=== PATIENT | male | born 1980 | race Caucasian/White ===

== ENCOUNTER 2019-10-15 13:34 | Observation (INO) ==
--- NOTE | 2019-10-15 15:44 | Emergency Department Note ---
History of Present Illness General Chief complaint: Dental/Oral Stated complaint: TOOTH PAIN Time Seen by Provider: 10/15/19 15:11 History of Present Illness Maximum Pain Intensity: 7 This is a 38 year old male who presents to the ED via private vehicle with complaints of "tooth pain". The patient states that he has been experiencing left upper dental pain x5 days. He was prescribed amoxicillin this past at [facility] emergency department and states that he has had worsening pain since that time and now swelling that has markedly progressed since last night. He denies any fevers but does note chills. He denies any pertinent past medical history, surgeries or allergies. No trouble breathing or swallowing. He points to the left anterior portion of the face that extends just below the left eye and to the mouth as a location of pain that he currently rates as a 7/10. Home Medications Home Medications Medication Instructions Recorded Confirmed Type acetaminophen [Tylenol Extra 1,000 mg PO Q6H PRN 10/15/19 10/15/19 History Strength] amoxicillin 500 mg PO TID 10/15/19 10/15/19 History ibuprofen 400 mg PO Q4H PRN 10/15/19 10/15/19 History Allergies Allergy/AdvReac Type Severity Reaction Status Date / Time No Known Allergies Allergy Verified 10/15/19 15:46 Past Med/Surg History Medical History No pertinent past medical history Surgical History No pertinent past surgical history Social History Smoking Status: Current every day smoker Tobacco Type: Cigarettes Feels Safe at Home: Yes Review of Systems A total of 10 systems reviewed and were otherwise negative Physical Exam Vital Signs Vital Signs - 24 hr 10/15/19 13:40 10/15/19 15:40 10/15/19 17:39 Temperature 37.2 C Temperature Source Oral Pulse Rate 88 Pulse Rate [Radial] 95 H 72 Pulse Rhythm [Radial] Regular Regular Pulse Strength [Radial] Normal Respiratory Rate 18 18 16 Respiratory Effort / Characteristics Non-Labored Spontaneous Non-Labored Spontaneous Respiratory Depth Normal Normal Respiratory Pattern Regular Regular Blood Pressure 146/93 H Blood Pressure [Right Arm] 136/88 142/98 H Blood Pressure Mean 110 Blood Pressure Mean [Right Arm] 104 112 Pulse Oximetry 99 98 99 Oxygen Delivery Method Room Air Room Air Room Air Sepsis Recent Fever Within 48 Hours No Sepsis New/Unexplained Change in Mental Status No Sepsis Action Taken by Nursing No Action Required 10/15/19 18:55 Temperature Temperature Source Pulse Rate Pulse Rate [Radial] 70 Pulse Rhythm [Radial] Regular Pulse Strength [Radial] Normal Respiratory Rate 18 Respiratory Effort / Characteristics Non-Labored Spontaneous Respiratory Depth Normal Respiratory Pattern Regular Blood Pressure Blood Pressure [Right Arm] 147/88 H Blood Pressure Mean Blood Pressure Mean [Right Arm] 107 Pulse Oximetry 99 Oxygen Delivery Method Room Air Sepsis Recent Fever Within 48 Hours Sepsis New/Unexplained Change in Mental Status Sepsis Action Taken by Nursing VITAL SIGNS - Vital signs and nursing notes were reviewed. Stable and afebrile. GENERAL - 38-year-old male appearing his stated age who is in no acute distress. Communicates well with provider and answers questions appropriately. SKIN - Without rashes. There is edema to the left side of the face without erythema. This is overlying the left maxillary region just inferior to the left eye. HEAD - NC/AT. EYES - PERRL with EOMI bilaterally. Sclera anicteric. EARS - No deformities of external structures noted on gross examination bilaterally. External auditory canals without discharge or otorrhea. Tympanic membranes pearly montano without retraction or bulging. No fluid or purulent material visualized behind the TM. Handle of malleus, umbo, cone of light, pars tensa/flaccid all easily visualized. NOSE - Midline and without cyanosis. No epistaxis or purulent drainage noted. Septum midline without deviation or septal hematoma noted. MOUTH/OROPHARYNX - Without perioral cyanosis. Buccal mucosa pink and moist and without leukoplakia. Tongue midline with equal elevation of palate bilaterally. No tonsillar hypertrophy, erythema, or exudates noted. Overall poor dentition n oted. Left anterior facial edema and edema to the left hard pallate. NECK - Neck with FROM. Supple to palpation. No nuchal rigidity. LUNGS - Chest wall symmetric without accessory muscle use, intercostals retractions, or central cyanosis. Normal vesicular breath sounds CTA B/L. No wheezes, rales, or rhonchi appreciated. CARDIAC - RRR with S1/S2. No murmur, rubs, or gallops appreciated. EXTREMITIES - No clubbing or peripheral cyanosis. +5/5 strength noted in UE/LE bilaterally. NEUROLOGIC - Cranial nerves II through XII grossly intact. PSYCH - A&O, and cooperates fully with examiner. Pt is very pleasant and interacts well with examiner. Course Administered Medications Ioversol (Optiray 320 100ml) 93 ml IV ONCE PRN PRN Reason: Interaction Checking Stop: 10/19/19 16:22 Last Admin: 10/15/19 16:23 Dose: 1 ml Documented by: [id number] Discontinued Medications Ampicillin Sodium/Sulbactam Sodium 3,000 mg/ Sodium Chloride 108 mls @ 200 mls/hr IV NOW STA; Protocol Stop: 10/15/19 18:14 Last Infusion: 10/15/19 19:25 Dose: 0 mls/hr Documented by: [id number] Admin: 10/15/19 18:53 Dose: 200 mls/hr Documented by: [id number] Ketorolac Tromethamine (Toradol) 15 mg IV NOW STA Stop: 10/15/19 17:51 Last Admin: 10/15/19 18:53 Dose: 15 mg Documented by: [id number] Medical Decision Making Laboratory Data Result diagrams: 10/15/19 15:40 10/15/19 15:40 Lab Results 10/15/19 10/15/19 Range/Units 15:40 15:40 WBC 15.47 H (4.8-10.8) K/uL RBC 4.99 (4.7-6.1) M/uL Hgb 14.9 (14.0-18.0) g/dL Hct 43.6 (42-52) % MCV 87.4 (80-100) fL MCH 29.9 (25-34) pg MCHC 34.2 (32-36) g/dL RDW Std Deviation 43.2 (36.4-46.3) fL RDW Coeff of Perfecto 13.4 (11.5-14.5) % Plt Count 232 (130-400) K/uL MPV 11.1 H (7.4-10.4) fL Immature Gran % (Auto) 0.3 % Neut % (Auto) 81.8 % Lymph % (Auto) 8.5 % [place] % (Auto) 8.7 % Eos % (Auto) 0.6 % Baso % (Auto) 0.1 % Neut # (Auto) 12.66 H (1.4-6.5) K/uL Lymph # (Auto) 1.32 (1.2-3.4) K/uL [place] # (Auto) 1.34 H (0.11-0.59) K/uL Eos # (Auto) 0.09 (0-0.5) K/uL Baso # (Auto) 0.02 (0-0.2) K/uL Immature Gran # (Auto) 0.04 H (0.00-0.02) K/uL Sodium 138 (136-145) mmol/L Potassium 3.8 (3.5-5.1) mmol/L Chloride 105 (98-107) mmol/L Carbon Dioxide 28 (21-32) mmol/L Anion Gap 5.0 (3-11) BUN 3 L (7-18) mg/dl Creatinine 0.93 (0.6-1.4) mg/dl Est Cr Clr Drug Dosing 105.6 ml/min Est GFR ( Amer) 120.3 Est GFR (Non-Af Amer) 103.8 BUN/Creatinine Ratio 2.8 L (10-20) Glucose 87 (70-99) mg/dl Calcium 9.4 (8.5-10.1) mg/dl Total Bilirubin 0.7 (0.2-1) mg/dl AST 9 L (15-37) U/L ALT 16 (12-78) U/L Alkaline Phosphatase 106 (45-117) U/L Total Protein 8.3 H (6.4-8.2) gm/dl Albumin 4.2 (3.4-5.0) gm/dl Globulin 4.1 H (2.5-4.0) gm/dl Albumin/Globulin Ratio 1.0 (0.9-2) Imaging Data Radiologist's Impression: CT facial bones w con CT DOSE: 706.62 mGy.cm CLINICAL HISTORY: Left-sided facial edema, poor dentition TECHNIQUE: The patient was scanned in a dynamic helical fashion during intravenous administration of 94 cc of Optiray 320. A dose lowering technique was utilized adhering to the principles of ALARA. COMPARISON STUDY: None. FINDINGS: No salivary gland masses are visualized. There are mildly prominent bilateral cervical lymph nodes left greater than right, likely reactive. No mucosal space masses are visualized. There is no evidence for airway compromise. There is left maxillary sinus mucosal thickening. There is left-sided perinasal and premaxillary soft tissue edema. There are multiple bilateral dental caries. There are bony destructive changes surrounding the left maxillary canine. There is adjacent soft tissue abscess both medially and laterally to the maxilla measuring 2 cm in greatest diameter. IMPRESSION: 1. Poor dentition with multiple bilateral dental caries 2. Multiple bilateral dental apical abscesses 3. Dental apical abscess involving the left maxillary canine. There are associated bony destructive changes with adjacent soft tissue abscess extending both medially and laterally to the maxilla measuring 2 cm in diameter. Dental/political scientist referral recommended. 4. Prominent cervical lymph nodes, likely reactive ACT 112: Negative or not required by law. Electronically signed by: Rashel Meza M.D. 10/15/2019 4:51 PM MDM Narrative Patient was seen and evaluated as above in room B04. Review was performed of nursing notes and vital signs. After obtaining a thorough history and physical examination the above work up was performed. He presents to us today with atraumatic left facial swelling in the setting of poor dentition. There is obvious dental infection now with what appears to be spread into the face. Blood work was obtained. There is moderate leukocytosis around 15,000. No significant anemia. No emergent metabolic disturbance. Patient was given IV Toradol for pain. CT scan of the face was obtained with contrast. There is a dental apical abscess involving left maxillary canine. There are associated bony destructive changes with adjacent soft tissue abscess extending both medially and laterally to the maxilla measuring 2 cm in diameter. Clinically this is what I believe is causing the patient's discomfort. Given that the patient is already been on p.o. antibiotics and given the rapid progression did feel it reasonable to discuss the case with Dr. Miller, oral maxillofacial surgeon. We discussed inpatient management, IV antibiotics, n.p.o. after midnight and possible surgical procedure tomorrow. Patient was amenable to sta poly. Case discussed with the hospitalist. Please refer to further documentation regarding his stay. He was given IV Unasyn. GCS 15 In the evaluation and treatment of this patient, the following differential diagnoses were considered: Periapical Abscess, Osteonecrosis of the Jaw, Dental Fracture, Dental Caries, Michael's Angina, Vincent's Angina, Facial Cellulitis. Case was discussed with the attending physician. Impression & Plan Abscess, dental Discharge Plan Visit Data Chief Complaint: Dental/Oral Stated Complaint: TOOTH PAIN ED Provider: Julia Shultz ED Midlevel Provider: Edmundo Figueroa Discharge Problem: Abscess, dental Patient Disposition: Admitted As Inpatient Condition: Good Discharge Instructions Interventions: ED Discharge Assessment Last Done: 10/15/19 20:30 Forms Stand Alone Forms: [facility], [facility] Emergency Department, Important Visit Information Prescriptions Prescriptions: No Action amoxicillin 500 mg capsule 500 mg PO TID RF: 0 acetaminophen [Tylenol Extra Strength] 500 mg Tablet 1,000 mg PO Q6H PRN (Reason: Pain) RF: 0 ibuprofen 200 mg Tablet 400 mg PO Q4H PRN (Reason: Pain) RF: 0 Referrals Referrals: PCP,NO [Primary Care Provider] -
[2019-10-15 15:57] LABS: Basophils # (auto) 0.02 K/uL (0-0.2); Basophils % (auto) 0.1 %; Eosinophils # (auto) 0.09 K/uL (0-0.5); Eosinophils % (auto) 0.6 %; Hematocrit (blood only) 43.6 % (42-52); Hemoglobin 14.9 g/dL (14.0-18.0); Immature Granulocytes # (auto) 0.04 K/uL (0.00-0.02); Immature Granulocytes % (auto) 0.3 %; Lymphocytes # (auto) 1.32 K/uL (1.2-3.4); Lymphocytes % (auto) 8.5 %; Mean Corpuscular Hemoglobin 29.9 pg (25-34); Mean Corpuscular Hgb Conc 34.2 g/dL (32-36); Mean Corpuscular Volume 87.4 fL (80-100); Mean Platelet Volume 11.1 fL (7.4-10.4); Monocytes # (auto) 1.34 K/uL (0.11-0.59); Monocytes % (auto) 8.7 %; Neutrophils # (auto) 12.66 K/uL (1.4-6.5); Neutrophils % (auto) 81.8 %; Platelet Count 232 K/uL (130-400); RDW Coefficient of Variation 13.4 % (11.5-14.5); RDW Standard Deviation 43.2 fL (36.4-46.3); Red Blood Count 4.99 M/uL (4.7-6.1); White Blood Count 15.47 K/uL (4.8-10.8)
[2019-10-15 16:14] LABS: Albumin Level 4.2 gm/dl (3.4-5.0); BUN Creatinine Ratio 2.8 (10-20); Calcium 9.4 mg/dl (8.5-10.1); Creatinine Clr Calc Pharmacy 105.6 ml/min; Est GFR (African American) 120.3; Est GFR (Non-African American) 103.8; Potassium 3.8 mmol/L (3.5-5.1)
[2019-10-15 16:17] LABS: Bilirubin,Total 0.7 mg/dl (0.2-1); Globulin 4.1 gm/dl (2.5-4.0); Total Protein 8.3 gm/dl (6.4-8.2)
[2019-10-15] MEDS ORDERED: IOVERSOL 100ml IV PRN (16:23)
--- NOTE | 2019-10-15 16:53 | CT Scan Report ---
CT facial bones w con CT DOSE: 706.62 mGy.cm CLINICAL HISTORY: Left-sided facial edema, poor dentition TECHNIQUE: The patient was scanned in a dynamic helical fashion during intravenous administration of 94 cc of Optiray 320. A dose lowering technique was utilized adhering to the principles of ALARA. COMPARISON STUDY: None. FINDINGS: No salivary gland masses are visualized. There are mildly prominent bilateral cervical lymp h nodes left greater than right, likely reactive. No mucosal space masses are visualized. There is no evidence for airway compromise. There is left maxillary sinus mucosal thickening. There is left-sided perinasal and premaxillary soft tissue edema. There are multiple bilateral dental caries. There are bony destructive changes surrounding the left m axillary canine. There is adjacent soft tissue abscess both medially and laterally to the maxilla laci suring 2 cm in greatest diameter. IMPRESSION: 1. Poor dentition with multiple bilateral dental caries 2. Multiple bilateral dental apical abscesses 3. Dental apical abscess involving the left maxillary canine. There are associated bony destructive c hanges with adjacent soft tissue abscess extending both medially and laterally to the maxilla measuri ng 2 cm in diameter. Dental/discharge rn referral recommended. 4. Prominent cervical lymph nodes, likely reactive ACT 112: Negative or not required by law. Electronically signed by: Rashel Meza M.D. 10/15/2019 4:51 PM
[2019-10-15] MEDS ORDERED: AMPICILLIN/SULBACTAM SOD 3,000 MG in 0.9 % SODIUM CHLORIDE 100 ML IV STA (17:42)
[2019-10-15] MEDS ORDERED: KETOROLAC TROMETHAMINE 15 MG/ML VIAL IV STA (17:50)
--- NOTE | 2019-10-15 20:03 | History & Physical Report ---
Date of Service October 15, 2019 Assessment & Plan (1) Dental abscess: 38-year-old male with no significant past medical history presents with concerns of worsening dental infection. Dental Abscess -Face CT: Poor dentition with multiple bilateral dental caries. Multiple bilateral dental apical abscesses. Dental apical abscess involving the left maxillary canine. There are associated bony destructive changes with adjacent soft tissue abscess extending both medially and laterally to the maxilla measuring 2 cm in diameter. Prominent cervical lymph nodes, likely reactive -IV Unasyn 3 g every 6 hours. Pt completed 5 day course of Amoxicillin HEALTHCARE REPRESENTATIVE -blood cx pending -We will make patient n.p.o. after midnight. IVF NSS at 80 mls/hr -Pain management with Tylenol and IV Toradol for moderate pain. Pain well controlled currently -appreciate oral maxillofacial surgery consult who will evaluate pt in the AM -set up with dental clinic on d/c for close f/u as outpt FEN/GI: NSS@80. N.p.o. after midnight DVT prophylaxis: Low risk per admission Calc. SCDs, ambulation Full code Dispo: MedSurg History of Present Illness Chief Complaint: Tooth pain Primary Care Provider: NO PCP 38-year-old male with no significant past medical history presents with concerns of dental infection that is worsening. Patient notes that he often gets dental infections, which he normally goes to [facility] ED to get treated. They usually give him 5 days with amoxicillin and his symptoms subside. This particular episode began this past , October 11, 2019 for which he again went to [facility] the ED and was prescribed 5 days worth of amoxicillin. However this time his symptoms did not resolve, so he presented to our ED. Tooth pain d escribed as a dull constant pressure with radiation into bilateral eyes and ears. Pain exacerbated by eating. Patient notes that he has not been able to take anything p.o. for the last 2-1/2 days. For relief patient has been alternating Tylenol and ibuprofen, which has helped a little. At its worst pain a 7 or an 8 out of 10 on pain scale. Patient notes associated chills, sweats, and photophobia. Patient otherwise denies any known fevers, nausea, vomiting, cough, chest pain, shortness of breath, diaphoresis, headache, lightheadedness or dizziness, dysphagia,, abdominal pain, known sick contacts or recent travel anywhere. Patient with no other acute concerns or complaints. Pertinent labs: WBC 15.47, otherwise largely unremarkable. Face CT: Poor dentition with multiple bilateral dental caries. Multiple bilateral dental apical abscesses. Dental apical abscess involving the left maxillary canine. There are associated bony destructive changes with adjacent soft tissue abscess extending both medially and laterally to the maxilla measuring 2 cm in diameter. Prominent cervical lymph nodes, likely reactive ER course: IV Unasyn 3 g, IV ketorolac 15 mg Surgical history: Patient notes he had 2 teeth pulled about 4 years ago, wisdom teeth removal Social history: Patient is 1 pack/day smoker. Quit alcohol use 2 years ago. Denies any illicit drug use Allergies Allergy/AdvReac Type Severity Reaction Status Date / Time No Known Allergies Allergy Verified 10/15/19 15:46 Home Medications Home Medications Medication Instructions Recorded Confirmed Type acetaminophen [Tylenol Extra 1,000 mg PO Q6H PRN 10/15/19 10/15/19 History Strength] amoxicillin 500 mg PO TID 10/15/19 10/15/19 History ibuprofen 400 mg PO Q4H PRN 10/15/19 10/15/19 History Past Med/Surg History Medical History No pertinent past medical history Surgical History No pertinent past surgical history Social History Smoking Status: Current every day smoker Tobacco Type: Cigarettes Second Hand Exposure: Yes; Do You Dip or Chew Tobacco: No; Tobacco Cessation Education Requested by Patient: No Hx Alcohol Use: No Hx Substance Use: No Preferred Language: Bulgarian Communication Ability: Effective Financial Aid Manager Required: No Beliefs That Will Affect Care: None Current Living Situation: Parent Other Information That Helps Us Care for You: No Feels Safe at Home: Yes Safety Concerns: Feels Safe At This Time Review of Systems Review of Systems: All systems reviewed & are unremarkable except as noted in HPI & below Physical Exam Constitutional: WD/WN, vitals as above Eyes: PERRL, conjunctivae normal, anicteric sclerae ENMT: Mouth: + oral mucosal abnormality (L upper maxillary canine abscess most prominent) and + dentition abnormality (poor dentition, multiple b/l dental carries ) Respiratory: normal respiratory effort, lungs clear to auscultation Cardiovascular: RRR, no murmur, no edema Gastrointestinal (Abdomen): normal bowel sounds, soft, nontender, no hepatosplenomegaly Skin: no rashes, warm and dry Psychiatric: A+Ox3, euthymic affect Lymphatic: + lymphadenopathy (anterior cervical) Results & Data Results & Data ([facility]) Vital Signs (Past 12 Hours) Vital Signs Temp Pulse Pulse Resp BP BP Pulse Ox 10/15/19 18:55 70 18 147/88 H 99 10/15/19 17:39 72 16 142/98 H 99 10/15/19 15:40 95 H 18 136/88 98 10/15/19 13:40 37.2 C 88 18 146/93 H 99 Laboratory Results Laboratory Results - last 24 hr 10/15/19 10/15/19 15:40 15:40 WBC 15.47 H RBC 4.99 Hgb 14.9 Hct 43.6 MCV 87.4 MCH 29.9 MCHC 34.2 RDW Std Deviation 43.2 RDW Coeff of Perfecto 13.4 Plt Count 232 MPV 11.1 H Immature Gran % (Auto) 0.3 Neut % (Auto) 81.8 Lymph % (Auto) 8.5 [place] % (Auto) 8.7 Eos % (Auto) 0.6 Baso % (Auto) 0.1 Neut # (Auto) 12.66 H Lymph # (Auto) 1.32 [place] # (Auto) 1.34 H Eos # (Auto) 0.09 Baso # (Auto) 0.02 Immature Gran # (Auto) 0.04 H Sodium 138 Potassium 3.8 Chloride 105 Carbon Dioxide 28 Anion Gap 5.0 BUN 3 L Creatinine 0.93 Est Cr Clr Drug Dosing 105.6 Est GFR ( Amer) 120.3 Est GFR (Non-Af Amer) 103.8 BUN/Creatinine Ratio 2.8 L Glucose 87 Calcium 9.4 Total Bilirubin 0.7 AST 9 L ALT 16 Alkaline Phosphatase 106 Total Protein 8.3 H Albumin 4.2 Globulin 4.1 H Albumin/Globulin Ratio 1.0 Medications Administered Current Inpatient Medications Ioversol (Optiray 320 100ml) 93 ml IV ONCE PRN PRN Reason: Interaction Checking Stop: 10/19/19 16:22 Last Admin: 07/27/20 16:23 Dose: 1 ml Documented by: Code Status & VTE Plan Code Status Full Supervising Physician Co-Signing Physician Notes Patient seen and examined, chart reviewed, case discussed with Dr. Cameron and I agree with his assessment and plan as documented above. Briefly, patient is a 38yo C male presenting with worsening oral pain, dental abscess on left canine tooth. He had recently been seen at [facility] and given a 5 day course of Amoxicillin with no improvement in symptoms. Patient denies fevers/chills/sore throat/trismus/drooling or change in voice. He reports longstanding history of poor dentition. He was formerly in the [facility] [place] and has been trying to be set up with a dentist at the [place] but it has been difficult to establish care. On exam he is afebrile, HD stable, NAD Skin - intact HEENT - NC/AT, PERRL, EOMI, neck supple, left facial swelling, poor dentition with multiple teeth broken at the gumline, area of swelling at left canine lingual side, no swelling of tongue/palate/uvula Heart - +S1/S2, regular, no m/r/g Lungs - CTA Abd - +BS, soft, NT/ND Ext - No edema Labs and images reviewed. Significant for neutrophil predominant leukocytosis with WBC=15.47 CT wtih multiple bilateral dental caries and multiple bilateral apical abscesses. Dental apical abscess of the left maxillary canine with bony destructive changes and a 2cm abscess. Prominent cervical lymph node Assessment/Plan: 38yo C male with poor dentition, 2cm abscess -Observation to medical floor -Broad coverage with Unasyn for now -OMFS consultation appreciated -NPO for I&D in AM -Patient should be referred to dental clinic prior to discharge for ongoing needs and close followup -Remainder of plan as above Resident Activity Tracking Resident Involvement: Resident Care Provided Care Provided: Adult Hospital Medicine
[2019-10-15] MEDS ORDERED: ALUMINUM/MAGNESIUM SUSP 30 ML UDC PO PRN (20:47)
[2019-10-15] MEDS ORDERED: ONDANSETRON INJ 2 MG/ML 2 ML VIAL IV PRN (20:47)
[2019-10-15] MEDS ORDERED: KETOROLAC TROMETHAMINE 15 MG/ML VIAL IV PRN (20:47)
[2019-10-15] MEDS: SODIUM CHLORIDE 0.9% 1000ML 1,000 ML IV SCH (21:12)
[2019-10-15] MEDS: ACETAMINOPHEN 325 MG TAB PO PRN (22:27)
[2019-10-16] MEDS: AMPICILLIN/SULBACTAM SOD 3,000 MG in 0.9 % SODIUM CHLORIDE 100 ML IV SCH ×4 (00:10→19:19)
--- NOTE | 2019-10-16 01:37 | Billing Data ---
Date of Service October 15, 2019 Coding Level of Care Code 75806 OBS Care - Level 2
[2019-10-16] MEDS: ACETAMINOPHEN 325 MG TAB PO PRN (07:28)
[2019-10-16 07:52] LABS: Basophils # (auto) 0.02 K/uL (0-0.2); Basophils % (auto) 0.1 %; Eosinophils # (auto) 0.03 K/uL (0-0.5); Eosinophils % (auto) 0.2 %; Hemoglobin 12.8 g/dL (14.0-18.0); Immature Granulocytes # (auto) 0.04 K/uL (0.00-0.02); Immature Granulocytes % (auto) 0.3 %; Lymphocytes # (auto) 1.01 K/uL (1.2-3.4); Lymphocytes % (auto) 7.1 %; Mean Corpuscular Hemoglobin 28.5 pg (25-34); Mean Corpuscular Hgb Conc 32.8 g/dL (32-36); Mean Corpuscular Volume 86.9 fL (80-100); Mean Platelet Volume 11.4 fL (7.4-10.4); Monocytes # (auto) 1.14 K/uL (0.11-0.59); Neutrophils # (auto) 11.96 K/uL (1.4-6.5); Neutrophils % (auto) 84.3 %; Platelet Count 211 K/uL (130-400); RDW Coefficient of Variation 13.2 % (11.5-14.5); RDW Standard Deviation 42.2 fL (36.4-46.3); Red Blood Count 4.49 M/uL (4.7-6.1)
[2019-10-16 08:00] LABS: Prothrombin Time 10.3 Seconds (9.0-12.0)
[2019-10-16 08:23] LABS: BUN Creatinine Ratio 7.2 (10-20); Calcium 8.7 mg/dl (8.5-10.1); Creatinine Clr Calc Pharmacy 118.1 ml/min; Est GFR (African American) 128.7; Est GFR (Non-African American) 111.1; Potassium 3.5 mmol/L (3.5-5.1)
--- NOTE | 2019-10-16 08:26 | Surgery Consultation ---
Date of Consultation October 15 oral Maxillofacial Surgery Exam Present Complaint: I have pain/swelling/drainage from my infected teeth. Symptoms have been ongoing for a while they would come and go. A detailed oral exam was completed. Finding--Grossly swollen palate and mucobuccal fold upper lateral side of nose left, tender gingival tissue with deep pocket formation.Teeth are in very poor shape and removal is clinical indicated. Draining fistula present upper right and lower right sides. Very poor oral health--high risk for infection reoccurring CT scan reviewed agree with findings see report The following teeth are decayed/fractured emergency removal needed JULIANN to control infection #3,4,5,6,7,8,9,10,11,12,13,14,15 Should have these removed but he does not want at this time ,27,28,29,30,31 Soft tissue of the floor of the mouth, tongue, posterior pharyngeal area all with in normal limits, no pathology or abnormal findings noted. However the palate and gingival tissues are grossly swollen and infected, drainage noted Cancer exam--No lesions noted that require follow up or Bx. Oral Care---Overall oral care isvery poor Occlusion---Class I deep bite TMJ exam: No pop, clicking, pain, good ROM, No history of TMJ injury or dysfunction Periodontal exam---very poor Neck is supple, FROM, Able to extend and flex neck w/o difficulty, no masses, no abnormalities, no airway issues, no evidence of sleep apnea. Plan: Set up with general anesthesia in hospital due to complexity of the procedure Risks reviewed (see below) Physical exam completed I reviewed the treatment plan and consent with the patient . Understanding was expressed. Time was given for questions regarding the surgery, risks and post op care. The procedure will be set up today or JULIANN Review of informed consent with patient--in view of acute infection and fractured/decayed teeth he will need most of the infected teeth removed JULIANN. To control the infection of he upper jaw all upper teeth need removed with lower right side. Reason for surgery to remove decayed teeth to control infection: The wisdom teeth are impacted and in an abnormal position, removal is indicated and medically necessary. The following teeth are decayed and fractured and removal is indicated JULIANN (see above: Risks discussed: Pain,swelling,infection, dry socket, delayed healing, nerve injury to face,lips,tongue,chin area which could be permanent (rare). TMJ, jaw stiffness, change in bite (rare), ear pain (referred). Sinus problems like fistula or infection. Need to leave a small root fragment in place to avoid injury to nerve or sinus. Home care reviewed--tooth brushing, rinsing, follow up care with Dr Miller. diet=[id number] dental. Discussed activity level, driving/work while on Rx pain Meds. Plan: For the GA and surgery at Hospital [facility] needed, more extractions and dentures. 20 History of Present Illness Attending Physician: Marissa Regan MD Allergies Allergy/AdvReac Type Severity Reaction Status Date / Time No Known Allergies Allergy Verified 10/15/19 15:46 Home Medications Home Medications Medication Instructions Recorded Confirmed Type acetaminophen [Tylenol Extra 1,000 mg PO Q6H PRN 10/15/19 10/15/19 History Strength] amoxicillin 500 mg PO TID 10/15/19 10/15/19 History ibuprofen 400 mg PO Q4H PRN 10/15/19 10/15/19 History Patient History Medical History No pertinent past medical history Surgical History No pertinent past surgical history Social History Smoking Status: Current every day smoker Tobacco Type: Cigarettes Second Hand Exposure: Yes; Do You Dip or Chew Tobacco: No; Tobacco Cessation Education Requested by Patient: No Hx Alcohol Use: No Hx Substance Use: No Preferred Language: Vietnamese Communication Ability: Effective Educational Manager Required: No Beliefs That Will Affect Care: None Current Living Situation: Parent Other Information That Helps Us Care for You: No Feels Safe at Home: Yes Safety Concerns: Feels Safe At This Time Results & Data Vital Signs (Past 12 Hours) Vital Signs Temp Pulse Pulse Resp BP BP Pulse Ox 10/16/19 07:09 38.2 C H 118 H 16 138/72 94 10/16/19 00:06 37.2 C 71 14 153/87 H 97 10/15/19 20:40 37.2 C 69 14 124/83 99 10/15/19 20:30 81 16 148/97 H 98 PG Care Time/CCT Total # of Minutes Spent Total Time Spent with Patient: Total time spent is greater than 50% in coordination of care (as documented) at patient's floor/unit and/or counseling patient: Coding Level of Care Code 83948 Inpt Consult Level 4
[2019-10-16] MEDS ORDERED: SODIUM CHLORIDE 0.9% 1000ML 250 ML IV ONE (09:18)
--- NOTE | 2019-10-16 09:46 | Anesthesiology Consultation ---
Date of Service October 16, 2019 Assessment & Plan (1) Encounter for pre-operative examination: Chart Review Chart Review: Acceptable Risk for Surgery and Patient NOT seen in Pre Admission Testing Consults Requested none History Surgery Operation Date: 10/16/19 08:50 Proposed Procedures p Incision and Drainage Facial Abscess - Enmanuel Miller DMD s Extraction of Upper Teeth (10-15) - Enmanuel Miller DMD Height/Weight Height: 6 ft Weight: 70 kg Allergies Allergy/AdvReac Type Severity Reaction Status Date / Time No Known Allergies Allergy Verified 10/15/19 15:46 Medications Home Medications Medication Instructions Recorded Confirmed Last Taken acetaminophen [Tylenol Extra 1,000 mg PO Q6H PRN 10/15/19 10/15/19 Unknown Strength] amoxicillin 500 mg PO TID 10/15/19 10/15/19 Unknown ibuprofen 400 mg PO Q4H PRN 10/15/19 10/15/19 Unknown Active Medications Generic Name Dose Route Start Last Admin Trade Name Freq PRN Reason Stop Dose Admin Acetaminophen 650 mg 10/15/19 20:47 10/16/19 07:28 Tylenol PO 11/14/19 20:46 650 mg Q4H PRN Administration pain/fever Ampicillin Sodium/Sulbactam 108 mls @ 200 mls/hr 10/16/19 00:00 10/16/19 07:26 Sodium 3,000 mg/ Sodium IV 10/26/19 00:00 Infused Chloride Q6H [facility] Infusion Protocol Sodium Chloride 1,000 mls @ 120 mls/hr 10/15/19 20:47 10/16/19 07:52 Nss 1000ml IV 11/14/19 20:46 120 mls/hr .Q8H20M [facility] Infusion NPO Date Last Intake of Fluids: 10/15/19 Time Last Intake of Fluids: 20:00 Date Last Intake of Solids: 10/15/19 Time Last Intake of Solids: 20:00 Past Medical History Medical History No pertinent past medical history Past Surgical History Surgical History No pertinent past surgical history Social History Smoking Status: Current every day smoker tobacco type: cigarettes Do You Dip or Chew Tobacco: No Hx Alcohol Use: No Hx Substance Use: No Physical Exam Vital Signs Last Vital Signs Temp 37.1 C 10/16/19 09:19 Pulse 108 H 10/16/19 09:19 Resp 16 10/16/19 07:09 BP 138/72 10/16/19 07:09 Pulse Ox 94 10/16/19 07:09 Testing Laboratory Results 10/16/19 07:37 10/16/19 07:37 PT 10.3 Seconds (9.0-12.0) 10/16/19 07:37 INR 1.0 (0.9-1.1) 10/16/19 07:37 COVID pending
[2019-10-16] MEDS: SODIUM CHLORIDE 0.9% 1000ML 1,000 ML IV SCH ×2 (10:16→19:17)
--- NOTE | 2019-10-16 11:57 | Medical Student Progress Note ---
Date of Service October 16, 2019 Assessment & Plan (1) Abscess, dental: Patient is a 38 year old male presented to the ED on 10/14 with dental abscesses currently on IV Unasyn. Face CT shows multiple dental abscesses, most prominent in the left maxillary canine, and multiple dental carries. WBC are elevated, but downtrending. Oral Abscesses - Face CT: mutiple bilateral dental carries, multiple dental abscesses, reactive cervical lymphadenopathy - Oral maxillofacial surgery will operate this afternoon - Tylenol 500mg Q4H PRN for fever - BCx pending, ngtd - Continue IV Unasyn 3 g q6h - NPO, IVF NSS @ 80 mL/hr - Continue Tylenol PRN, IV Toradol for pain - Consulting Care Management to set up dental care post-discharge as outpatient Present on Admission?: Yes Subjective Patient is a 38 year-old who presented to the ED with a presumed dental infection. He had been complaining of 5 days of left upper dental pain before being prescribed a 5 day course of amoxicillin 500 mg TID on October 10. The pain and swelling had been worsening, which prompted him to come to the ED. He classified his pain as "constantly dull" rated at 7/10 at the left anterior face just below his left eye down towards the mouth. The pain radiated to his ears and eyes bilaterally. He was denying fever and endorsed chills, sweats, and photophobia. He was given IV Unasyn 3 g and IV ketorolac 15 mg in the ED. Overnight, he spiked a fever, had chills and sweats, and had some pus draining from his abscesses. Patient says after draining, he felt about 50% better since there was a relief of the pressure, a decrease in his facial swelling, and was able to sleep better. He is still endorsing some pain near his sinus area, noting that there are some deep abscesses there. Physical Exam Constitutional: well developed, well nourished, + thin and cooperative; no acute distress Eyes: PERRL, conjunctivae normal, anicteric sclerae ENMT: Mouth: + oral mucosal abnormality (L upper maxillary canine abscess most prominent) and + dentition abnormality (poor dentition, multiple b/l dental carries ) Neck: normal visual inspection Respiratory: normal respiratory effort; no respiratory distress, no cough, no grunting and no nasal flaring Auscultation: no crackles, no rales, no rhonchi and no wheezes Cardiovascular: Rate/Rhythm: regular rate and regular rhythm Heart Sounds: normal S1 and normal S2 Vessels: radial pulses present Extremities: normal capillary refill; no edema Gastrointestinal (Abdomen): Inspection/Auscultation: abdomen normal to inspection and normal bowel sounds Percussion/Palpation: abdomen soft; abdomen nontender, no guarding and abdomen not rigid Skin: no rashes, warm and dry Psychiatric: A+Ox3, euthymic affect Lymphatic: no lymphadenopathy (anterior cervical) Results & Data Medications Administered Acetaminophen (Tylenol) 650 mg PO Q4H PRN PRN Reason: pain/fever Stop: 11/14/19 20:46 Last Admin: 10/16/19 07:28 Dose: 650 mg Documented by: [id number] Admin: 10/15/19 22:27 Dose: 650 mg Documented by: [id number] Ampicillin Sodium/Sulbactam Sodium 3,000 mg/ Sodium Chloride 108 mls @ 200 mls/hr IV Q6H [facility]; Protocol Stop: 10/26/19 00:00 Last Infusion: 10/16/19 07:26 Dose: 0 mls/hr Documented by: [id number] Admin: 10/16/19 06:06 Dose: 200 mls/hr Documented by: [id number] Infusion: 10/16/19 00:50 Dose: 0 mls/hr Documented by: [id number] Admin: 10/16/19 00:10 Dose: 200 mls/hr Documented by: [id number] Sodium Chloride (Nss 1000ml) 1,000 mls @ 120 mls/hr IV .Q8H20M [facility] Stop: 11/14/19 20:46 Last Admin: 10/16/19 10:16 Dose: 120 mls/hr Documented by: [id number] Infusion: 10/16/19 09:56 Dose: 0 mls/hr Documented by: [id number] Infusion: 10/16/19 07:52 Dose: 120 mls/hr Documented by: [id number] Admin: 10/15/19 21:12 Dose: 80 mls/hr Documented by: [id number] Resident Activity Tracking Resident Involvement: Resident Care Provided Care Provided: Adult [facility]
[2019-10-16] MEDS ORDERED: LIDOCAINE HCL 2% 2 ML VIAL/AMP(20MG/ML) INFIL ONE (15:58)
[2019-10-16] MEDS ORDERED: PROPOFOL IV EMULSION 10 MG/ML 20 ML VIAL IV ONE (15:58)
[2019-10-16] MEDS ORDERED: DEXAMETHASONE SOD INJ 4 MG/ML VIAL ONE ×3 (15:58→17:11)
[2019-10-16] MEDS ORDERED: ONDANSETRON INJ 2 MG/ML 2 ML VIAL ONE (15:58)
[2019-10-16] MEDS ORDERED: MIDAZOLAM HCL 1 MG/ML 2ML VIAL ONE (16:03)
[2019-10-16] MEDS ORDERED: fentaNYL citrate 100 MCG/2 ML VIAL ONE (16:03)
[2019-10-16] MEDS ORDERED: ONDANSETRON INJ 2 MG/ML 2 ML VIAL IV PRN (16:25)
[2019-10-16] MEDS ORDERED: ePHEDrine sulfate 50 MG/ML AMP IV PRN (16:25)
[2019-10-16] MEDS ORDERED: ATROPINE SULFATE 0.1 MG/ML 10ML SYR IV PRN (16:25)
[2019-10-16] MEDS ORDERED: PROMETHAZINE HCL 12.5 MG in SODIUM CHLORIDE 0.9% 50 ML IV PRN (16:25)
[2019-10-16] MEDS ORDERED: HYDROmorphone INJ 2 MG/ML SYR/VIAL IV PRN (16:25)
[2019-10-16] MEDS ORDERED: fentaNYL citrate 100 MCG/2 ML VIAL IV PRN (16:25)
[2019-10-16] MEDS ORDERED: CHLORHEXIDINE GLUCONATE 0.12% 480 ML ONE (16:41)
[2019-10-16] MEDS ORDERED: BUPIVACAINE/EPINEPHRINE 0.5% 1:200,000 1.8 ML CARP ONE (16:41)
[2019-10-16] MEDS ORDERED: ROCURONIUM BROMIDE 10 MG/ML 5 ML VIAL IV ONE (17:12)
[2019-10-16] MEDS ORDERED: SUCCINYLCHOLINE CHLORIDE 20 MG/ML 10 ML VIAL IV ONE (17:12)
[2019-10-16] MEDS ORDERED: KETOROLAC 30 MG/ML VIAL ONE (17:54)
--- NOTE | 2019-10-16 18:01 | Operative Report ---
Post Operative Report Pre & Post Diagnosis Operation Date: 10/16/19 08:50 Pre-Op Diagnosis: Infected teeth (3,4,5,6,7,8,9,10,11,12,13,14,15), abscess of palate Post-Op Diagnosis: Infected teeth (3,4,5,6,7,8,9,10,11,12,13,14,15), abscess of palate I identified the patient and participated in the time-out.: Yes Procedure Operation Date: 10/16/19 08:50 Actual Procedures p Removal of teeth 3,4,5,6,7,8,9,10,11,12,13,14,15, Drainage of large palate infection 27,28,29,30,31 - Enmanuel Miller DMD Problem: Pain,swelling located--- Finding: There is a carious, fractured and infected tooth at site#: Plan: Surgical removal of the following tooth/teeth: Procedure report: After a complete H&P/ vital signs and oral exam was completed the patient was ready for the surgical procedure. Informed consent was reviewed and the consent form was signed. I gave them time to discuss any questions and if I explained the surgery that I will be performing to their understanding. The patient was positioned and light adjusted, Peridex mouth rinse was used and a final time out was taken to review the correct procedure, once agreed the local anesthesia was given in the standard fashion for the area of surgery. General anesthesia via a Oral Trac intubation was achieved and a good level of anesthesia was achieved Local Anesthesia: Using 1.8 cc Xylocaine 2% with 1/100,000 epi as a block profound anesthesia was obtained within 5-10 minutes. Surgical Note: Now using a periosteal elevator the tissue was reflected to expose the alveolar bone. The rongues was used to remove bone to allow the forceps to engage solid tooth structure. Using a controlled force the following teeth were removed-- 3,4,5,6,7,8,9,10,11,12,13,14,15. The nasal labial abscess was drained with a hemostat into the mucobuccal space along the side of the nose. Much pus was expressed this was cultured for aerobic and anaerobic. The large palatal abscess was drained, this decompressed the large swelling. I removed what looked to be a large cystic lining. The bone was trimmed . Once the teeth were removed I inspected the sockets and curetted the sockets I chromic 2-0 was used to close the tissues from # 3-#15. The lower teeth were so fractured and decayed that removal was needed to prevent these teeth was impinging on the upper gingival tissue. I removed the following teeth---27,28,29,30,31 the sockets were curetted and irrigated and then sutured closed A gauze pressure pack was placed over the socket . The patient was allowed to recover as per COVID protocol. He did very well. The extractions of the teeth were needed to allow control of the acute oral facial infection Surgeon: Enmanuel Miller DMD Oral Maxillofacial Surgery [facility] Surgeon Enmanuel Miller, DMD Hi Lift Operator none Estimated Blood Loss 10 Findings Consistent with Post-Op Diagnosis Specimens cyst of left hard palate Description of Procedure I&D, extraction of infected and fractured teeth I attest to the content of the Intraoperative Record and any orders documented therein. Any exceptions are noted below.
[2019-10-16] MEDS ORDERED: MoRPHine SULFATE 2 MG/ML CARP IV PRN ×2 (18:16→18:20)
--- NOTE | 2019-10-16 18:30 | Anesthesiology Progress Note ---
Date of Service October 16, 2019 Anesthesia Post Procedure Vital Signs Vital Signs: Temp Pulse Pulse Pulse Resp BP BP 10/16/19 16:23 37.5 C 81 18 130/88 10/16/19 15:14 36.8 C 76 18 120/77 10/16/19 09:19 37.1 C 108 H 10/16/19 07:09 38.2 C H 118 H 16 138/72 10/16/19 00:06 37.2 C 71 14 153/87 H 10/15/19 20:40 37.2 C 69 14 124/83 10/15/19 20:30 81 16 148/97 H 10/15/19 20:00 81 16 143/88 H 10/15/19 18:55 70 18 147/88 H Pulse Ox 10/16/19 16:23 97 10/16/19 15:14 97 10/16/19 09:19 10/16/19 07:09 94 10/16/19 00:06 97 10/15/19 20:40 99 10/15/19 20:30 98 10/15/19 20:00 98 10/15/19 18:55 99 Pain Intensity Mouth: Pain Intensity: 2 Transfer of Care Handoff Completed per policy Notes Mental Status: alert / awake / arousable and participated in evaluation Patient Amnestic to Procedure: Yes Nausea / Vomiting: adequately controlled Pain: adequately controlled Airway Patency, RR, SpO2: stable & adequate BP & HR: stable & adequate Hydration State: stable & adequate Anesthetic Complications: no major complications apparent and Pt Satisfied with anesthetic care
[2019-10-17] MEDS: AMPICILLIN/SULBACTAM SOD 3,000 MG in 0.9 % SODIUM CHLORIDE 100 ML IV SCH ×3 (00:07→12:25)
[2019-10-17] MEDS: SODIUM CHLORIDE 0.9% 1000ML 1,000 ML IV SCH ×2 (05:48→12:25)
--- NOTE | 2019-10-17 08:18 | Surgery Progress Note ---
Date of Service Post op day 1 Doing very well, minimal pain or swelling, infection well controlled. No bleeding, oral surgical sites looks great. OK for Discharge today. He has amoxicillin at home and I will Rx Pain Meds. He has follow up appointment with me on Oct 24 at 1 pm. Overall excellent result Discharge today October 17, 2019 Results & Data Vital Signs (Past 12 Hours) Vital Signs Temp Pulse Pulse Resp BP Pulse Ox 10/17/19 07:21 36.4 C L 76 16 128/84 97 10/17/19 04:06 36.2 C L 70 14 122/73 96 10/16/19 23:46 36.4 C L 66 14 127/80 96 10/16/19 22:01 36.7 C 88 16 119/76 94 10/16/19 21:07 36.7 C 85 14 122/86 94 PG Care Time/CCT Total # of Minutes Spent Total Time Spent with Patient: Total time spent is greater than 50% in coordination of care (as documented) at patient's floor/unit and/or counseling patient: Coding Level of Care Code 00644 Subseq Hosp Care Lvl 1
--- NOTE | 2019-10-17 09:40 | Medical Student Progress Note ---
Date of Service October 17, 2019 Assessment & Plan (1) Abscess, dental: Patient is a 38 year old male on Hospital Day 2 for dental abscesses and POD #1 s/p abscess drainage of the large palate and teeth removal (18). Overall, the procedure went well, he is not experiencing any pain and has diminished facial edema and mucosal inflammation. - Face CT on 10/14: mutiple bilateral dental carries, multiple dental abscesses, reactive cervical lymphadenopathy - Oral maxillofacial surgery on 10/15 - D/c today - Finish amoxicillin he received outpatient (7d left in course) and will be prescribed vicodin PRN, Tylenol PRN - Follow-up scheduled with Dr. Miller on October 24 at 1 PM Subjective Patient is a 38 year-old who presented to the ED with a presumed dental infection. He had been complaining of 5 days of left upper dental pain before being prescribed a 5 day course of amoxicillin 500 mg TID on October 10. The pain and swelling had been worsening, which prompted him to come to the ED. He classified his pain as "constantly dull" rated at 7/10 at the left anterior face just below his left eye down towards the mouth. The pain radiated to his ears and eyes bilaterally. He was denying fever and endorsed chills, sweats, and photophobia. He was given IV Unasyn 3 g and IV ketorolac 15 mg in the ED. 10/15: Overnight, he spiked a fever, had chills and sweats, and had some pus draining from his abscesses. Patient says after draining, he felt about 50% better since there was a relief of the pressure, a decrease in his facial swelling, and was able to sleep better. He is still endorsing some pain near his sinus area, noting that there are some deep abscesses there. 10/16: Overnight, he did well and has been afebrile. He feels good after the surgery and says he's feeling a lot better. He says he's been experiencing more "tightness" than pain, but says that his tightness has greatly diminished. His pain is about the same as it was yesterday, but he says that it's still minimal. Appetite has been about normal and he hasn't had any issues with urination/bowel movements. Overall, he doesn't have any concerns. Dr. Miller had just spoken with him before I walked in and his questions had been addressed at that time. Physical Exam Constitutional: well developed, well nourished, + thin and cooperative; no acute distress Eyes: PERRL, conjunctivae normal, anicteric sclerae ENMT: Nose: + facial edema Mouth: + oral mucosal abnormality (slight inflammation, moderate swelling from abscess drainage procedure) and + dentition abnormality (poor dentition, multiple teeth missing from surgery) Neck: normal visual inspection Respiratory: normal respiratory effort; no respiratory distress, no cough, no grunting and no nasal flaring Auscultation: no crackles, no rales, no rhonchi and no wheezes Cardiovascular: Rate/Rhythm: regular rate and regular rhythm Heart Sounds: normal S1 and normal S2 Vessels: radial pulses present Extremities: normal capillary refill; no edema Gastrointestinal (Abdomen): Inspection/Auscultation: abdomen normal to inspection and normal bowel sounds Percussion/Palpation: abdomen soft; abdomen nontender, no guarding and abdomen not rigid Skin: no rashes, warm and dry Psychiatric: A+Ox3, euthymic affect Lymphatic: no lymphadenopathy (anterior cervical) Results & Data Medications Administered Ampicillin Sodium/Sulbactam Sodium 3,000 mg/ Sodium Chloride 108 mls @ 200 mls/hr IV Q6H [facility]; Protocol Stop: 10/26/19 00:00 Last Infusion: 10/17/19 06:32 Dose: 0 mls/hr Documented by: [id number] Admin: 10/17/19 06:00 Dose: 200 mls/hr Documented by: [id number] Infusion: 10/17/19 00:41 Dose: 0 mls/hr Documented by: [id number] Admin: 10/17/19 00:07 Dose: 200 mls/hr Documented by: [id number] Infusion: 10/16/19 19:53 Dose: 0 mls/hr Documented by: [id number] Admin: 10/16/19 19:19 Dose: 200 mls/hr Documented by: [id number] Infusion: 10/16/19 13:13 Dose: 0 mls/hr Documented by: [id number] Admin: 10/16/19 11:59 Dose: 200 mls/hr Documented by: [id number] Infusion: 10/16/19 07:26 Dose: 0 mls/hr Documented by: [id number] Admin: 10/16/19 06:06 Dose: 200 mls/hr Documented by: [id number] Infusion: 10/16/19 00:50 Dose: 0 mls/hr Documented by: [id number] Admin: 10/16/19 00:10 Dose: 200 mls/hr Documented by: [id number] Sodium Chloride (Nss 1000ml) 1,000 mls @ 120 mls/hr IV .Q8H20M [facility] Stop: 11/14/19 20:46 Last Admin: 10/17/19 05:48 Dose: 120 mls/hr Documented by: [id number] Infusion: 10/17/19 03:38 Dose: 120 mls/hr Documented by: [id number] Infusion: 10/16/19 22:21 Dose: 120 mls/hr Documented by: [id number] Admin: 10/16/19 19:17 Dose: 120 mls/hr Documented by: [id number] Infusion: 10/16/19 19:17 Dose: 0 mls/hr Documented by: [id number] Infusion: 10/16/19 16:04 Dose: 0 mls/hr Documented by: [id number] Infusion: 10/16/19 12:32 Dose: 120 mls/hr Documented by: [id number] Infusion: 10/16/19 11:59 Dose: 0 mls/hr Documented by: [id number] Admin: 10/16/19 10:16 Dose: 120 mls/hr Documented by: [id number] Infusion: 10/16/19 09:56 Dose: 0 mls/hr Documented by: [id number] Infusion: 10/16/19 07:52 Dose: 120 mls/hr Documented by: [id number] Admin: 10/15/19 21:12 Dose: 80 mls/hr Documented by: [id number]
--- NOTE | 2019-10-17 15:30 | Discharge Summary ---
Date of Service October 17, 2019 Admission HPI Per Admitting Provider 38-year-old male with no significant past medical history presents with concerns of dental infection that is worsening. Patient notes that he often gets dental infections, which he normally goes to [facility] ED to get treated. They usually give him 5 days with amoxicillin and his symptoms subside. This particular episode began this past , October 11, 2019 for which he again went to [place] the ED and was prescribed 5 days worth of amoxicillin. However this time his symptoms did not resolve, so he presented to our ED. Tooth pain described as a dull constant pressure with radiation into bilateral eyes and ears. Pain exacerbated by eating. Patient notes that he has not been able to take anything p.o. for the last 2-1/2 days. For relief patient has been alternating Tylenol and ibuprofen, which has helped a little. At its worst pain a 7 or an 8 out of 10 on pain scale. Patient notes associated chills, sweats, and photophobia. Patient otherwise denies any known fevers, nausea, vomiting, cough, chest pain, shortness of breath, diaphoresis, headache, lightheadedness or dizziness, dysphagia,, abdominal pain, known sick contacts or recent travel anywhere. Patient with no other acute concerns or complaints. Pertinent labs: WBC 15.47, otherwise largely unremarkable. Face CT: Poor dentition with multiple bilateral dental caries. Multiple bilateral dental apical abscesses. Dental apical abscess involving the left maxillary canine. There are associated bony destructive changes with adjacent soft tissue abscess extending both medially and laterally to the maxilla measuring 2 cm in diameter. Prominent cervical lymph nodes, likely reactive ER course: IV Unasyn 3 g, IV ketorolac 15 mg Surgical history: Patient notes he had 2 teeth pulled about 4 years ago, wisdom teeth removal Social history: Patient is 1 pack/day smoker. Quit alcohol use 2 years ago. Denies any illicit drug use Admission Exam Per Admitting Provider Constitutional: WD/WN, vitals as above Eyes: PERRL, conjunctivae normal, anicteric sclerae ENMT: Mouth: + oral mucosal abnormality (L upper maxillary canine abscess most prominent) and + dentition abnormality (poor dentition, multiple b/l dental carries ) Respiratory: normal respiratory effort, lungs clear to auscultation Cardiovascular: RRR, no murmur, no edema Gastrointestinal (Abdomen): normal bowel sounds, soft, nontender, no hepatosplenomegaly Skin: no rashes, warm and dry Psychiatric: A+Ox3, euthymic affect Lymphatic: + lymphadenopathy (anterior cervical) Principal Diagnosis Multiple dental abscesses Discharge Exam Constitutional: well developed, well nourished, + thin and cooperative; no acute distress Eyes: PERRL, conjunctivae normal, anicteric sclerae ENMT: Nose: + facial edema Mouth: + oral mucosal abnormality (slight inflammation, moderate swelling from abscess drainage procedure) and + dentition abnormality (poor dentition, multiple teeth missing from surgery) Neck: normal visual inspection Respiratory: normal respiratory effort; no respiratory distress, no cough, no grunting and no nasal flaring Auscultation: no crackles, no rales, no rhonchi and no wheezes Cardiovascular: Rate/Rhythm: regular rate and regular rhythm Heart Sounds: normal S1 and normal S2 Vessels: radial pulses present Extremities: normal capillary refill; no edema Gastrointestinal (Abdomen): Inspection/Auscultation: abdomen normal to inspection and normal bowel sounds Percussion/Palpation: abdomen soft; abdomen nontender, no guarding and abdomen not rigid Skin: no rashes, warm and dry Psychiatric: A+Ox3, euthymic affect Lymphatic: no lymphadenopathy (anterior cervical) Discharge Data Allergies Allergy/AdvReac Type Severity Reaction Status Date / Time No Known Allergies Allergy Verified 10/15/19 15:46 Consultations 10/15/19 18:21 ED Decision to Admit Stat 10/15/19 20:47 Consult Oromaxillofacial Surgery Stat 10/16/19 13:06 Consult Case Management - Discharge Planning Routine Procedures Performed Operation Date: 10/16/19 08:50 Actual Procedures p Drainage of large palate infection 27,28,29,30,31 - Enmanuel Miller DMD s Removal of teeth 3,4,5,6,7,8,9,10,11,12,13,14,15, - Enmanuel Miller DMD Ordered Studies 10/15/19 15:21 CT facial bones w con Stat Hospital Course (1) Abscess, dental: Gregorio is a 38-year-old male with a past medical history of dental caries and poor dentition who presented with 5 days of left upper dental pain which did not improve on outpatient amoxicillin causing him to present to the emergency department. To do as outpatient: 1. Follow-up with maxillofacial surgery for reevaluation 2. Complete 1 week of amoxicillin treatment 3. Repeat CBC in 1 week to ensure resolution of leukocytosis 4. Follow-up with a primary care appointment within 1-2 weeks. Multiple dental abscesses Gregorio presented with 1 week of left upper dental pain superimposed on a chronic history of poor dentition. On admission a CT scan showed l bilateral dental carries, multiple dental abscesses, reactive cervical lymphadenopathy. Blood cultures were drawn and he was placed on empiric therapy with Unasyn. Maxillofacial surgery was consulted. He was febrile overnight pending surgical evaluation. Overnight he experienced a popping sensation and had a large amount of pus drained from his gums after which he experienced a relief of his pressure and pain. Following evaluation by surgery it was recommended he have surgical removal of multiple teeth with drainage of multiple facial abscesses. He underwent uncomplicated removal of 18 teeth with additional drainage of a large palate infection. He tolerated surgery well and he had no pain over the next 12 hours. He remained afebrile following procedure, and was discharged to complete a week of amoxicillin therapy with follow-up as outpatient to maxillofacial surgery. He should have a repeat CBC as outpatient to ensure resolution of his leukocytosis. Blood cultures were negative at time of discharge, mandibular cultures taken at time of surgery had pinpoint growth and were pending reincubation. At discharge he was prescribed a short course of Vicodin as needed by surgery, patient endorses he had mostly pressure but very little pain and would use this sparingly. Social disposition Patient has had difficulty with enrolling in primary care in the past, has most of his services managed through [facility]. This was discussed with nursing and care management, an appointment for follow-up with maxillofacial surgery was placed and an appointment with social out reach to the [place] to ensure adequate follow-up and care was placed. DVT prophylaxis Patient was able to ambulate, and was low risk for DVT. He did not experience any leg swelling or other signs of DVT during admission. (2) Dental abscess: (3) Post-nasal drip: Total Time Total Time Spent Total Time Spent (In Minutes): See attending documentation Discharge Plan Discharge Items Patient Disposition: Home - Self-Care Reason For Visit: DENTAL ABSCESS Discharge Diagnosis: S/P extraction of infected teeth Condition on Discharge: Good Goals: keep mouth clean Follow up with Dr Miller Activity: Resume your previous activity Lifting: Gradually increase as tolerated Bathing: No limitations Exercise/Sports: Gradually increase as tolerated Driving/Machine Use: Resume 1 day after discharge Weightbearing: Full weightbearing Non-emergency contact: Surgeon Call non-emergency contact if: your temperature is above 101.5, your wound has increased redness, your wound has increased drainage and your wound pain has increased Follow-up/Referrals: Enmanuel Miller, DMD [Physician] - 10/25/19 1:00 pm PCP,NO [Primary Care Provider] - (Dr. Ware at [facility] team- office will ocntact you for follow up appointment and dental care) Diet: Full liquid Diet Texture: Pureed (blended smooth) Addtl Attending Provider Instructions: ADDITIONAL ACTIVITY RECOMMENDATIONS: * [place] lower teeth after every meal. It is very important to keep your mouth clean to prevent infection. SPECIAL CARE INSTRUCTIONS: * Keep ice on the side of your face for the next 24 to 36 hours. This will help keep the swelling down. * After 36 hours, apply heat (hot water bottle or heating pad) for the next two days, as often as possible. * Tomorrow start rinsing your mouth with 1/2 teaspoon salt in 8 ounces warm water. This rinse should be used every 4-6 hours. * You may experience slight nausea. To prevent this, never take your medication on an empty stomach. If nauseated, take small sips of bryan huong until you feel better; then you may start on applesauce and toast. * Some swelling is common. It should gradually decrease within 4-5 days. * A certain amount of bleeding is to be expected. It is often possible to control mild oozing by placing folded gauze over the area and biting down for 30 minutes. If you are unable to control excessive bleeding, call Dr Miller at [phone] * You may experience some discomfort for a few days. If pain or swelling increases, Call Dr Miller Pending Studies at Discharge: Yes Studies:: pathology of palatal cyst and I&D results Stand-Alone Forms: My [facility], Opioid Pain Management, Smoking Cessation Medications and DC Order Prescriptions: Continued hydrocodone-acetaminophen 5-325 mg tablet 1 tab PO Q4H PRN (Reason: pain) Qty: 10 RF: 0 chlorhexidine gluconate [Peridex] 0.12 % mouthwash 15 ml mucous membrane BID Qty: 473 RF: 0 amoxicillin 500 mg capsule 500 mg PO TID RF: 0 acetaminophen [Tylenol Extra Strength] 500 mg Tablet 1,000 mg PO Q6H PRN (Reason: Pain) RF: 0 ibuprofen 200 mg Tablet 400 mg PO Q4H PRN (Reason: Pain) RF: 0 Discharge Orders: Discharge Order (Routine); Ordered 10/17/19 Ordered By: Enmanuel Rossi/Other Patient Handouts: Dental Abscess, Understanding Healthy Teeth and Gums Admission Data Admit Date/Time: 10/15/19 20:06 Attending Provider: Marissa Regan Admit Provider: Steve Cameron Primary Care Provider: PCP,NO Other Providers: Gloria Nails ; Marly Ojeda ; Enmanuel Miller Other Interventions: Discharge Summary Assessment (RN) Last Done: 10/17/19 12:21 DC Date/Time DO NOT enter until pt leaves facility: 10/17/19 13:00 Supervising Physician Co-Signing Physician Notes Resident Physician Supervision Note: I independently interviewed and examined the patient and verified the ruiz history and physical, reviewed labs and image studies, discussed the case with the resident Dr. Hernandez and agree with the findings and care plan. Resident Activity Tracking Resident Involvement: Resident Care Provided Care Provided: Adult Hospital Medicine
== END 2019-10-17 13:00 | disposition home or self-care (01) ==
LOC: ED 13:34 → 3W 13:34 → SUATTDRO 20:06 → 3W 20:30